=== PATIENT | female | born 1990 | race Caucasian/White ===

== ENCOUNTER 2017-09-18 11:34 | Outpatient (CLI) | payer MEDICAID ==
[~2017-09-18] VITALS: Ht 160 cm; Wt 111.4 kg
[2017-09-18] MEDS ORDERED: LACTATED RINGER'S 1,000 ML IV SCH ×2 (12:12→13:47)
[2017-09-18 12:17] VITALS: Ht 160 cm; Wt 111.4 kg
[2017-09-18] MEDS ORDERED: PREN-19 PO (12:20)
[2017-09-18] MEDS ORDERED: LIDOCAINE 1% (MPF) 30 ML INJ INJ PRN ×2 (12:30→14:00)
[2017-09-18] MEDS ORDERED: OXYTOCIN 30 UNITS/LR 500 ML IV SCH ×2 (12:30)
[2017-09-18] MEDS ORDERED: OXYTOCIN 30 UNITS/LR 500 ML IV PRN ×2 (12:30→14:00)
[2017-09-18] MEDS ORDERED: IBUPROFEN 600 MG TAB PO PRN ×2 (12:30→14:00)
[2017-09-18] MEDS ORDERED: BUTORPHANOL 2 MG INJ IV PRN (12:30)
[2017-09-18] MEDS ORDERED: MISOPROSTOL 200 MCG TAB PR PRN ×2 (12:30→14:00)
[2017-09-18] MEDS ORDERED: CARBOPROST 250 MCG INJ IM PRN ×2 (12:30→14:00)
[2017-09-18] MEDS ORDERED: METHYLERGONOVINE 0.2 MG INJ IM PRN ×2 (12:30→14:00)
[2017-09-18 12:36] LABS: BASOPHIL # 0.1 10^3/ul (0.0-0.1); BASOPHILS % 0.5 % (0.0-2.0); EOSINOPHILS # 0.1 10^3/ul (0.0-0.5); EOSINOPHILS % 0.5 % (0.0-7.0); HEMATOCRIT 33.3 % (37.0-47.0); HEMOGLOBIN 10.6 g/dl (12.0-16.0); LYMPHOCYTES # 1.5 10^3/ul (0.8-2.9); LYMPHOCYTES % 15.7 % (15.0-51.0); MEAN CORPUSCULAR HGB CONC 31.8 g/dl (32.0-37.0); MEAN CORPUSCULAR VOLUME 75.3 fl (82.0-101.0); MEAN PLATELET VOLUME 9.7 fl (7.4-10.4); MONOCYTE # 0.6 10^3/ul (0.3-0.9); MONOCYTES % 6.1 % (0.0-11.0); NEUTROPHIL # 7.3 10^3/ul (1.6-7.5); NEUTROPHILS % 76.6 % (39.0-77.0); NUCLEATED RED BLOOD CELLS% 0.3 /100WBC (0.0-0.0); PLATELET COUNT 320 10^3/UL (140-415); RED BLOOD COUNT 4.42 10^6/ul (4.20-5.40); RED CELL DISTRIBUTION WIDTH 15.4 % (11.5-14.5); WHITE BLOOD COUNT 9.5 10^3/ul (4.8-10.8)
[2017-09-18 12:55] LABS: INR 0.89; PARTIAL THROMBOPLASTIN TIME 24.9 Sec (25.0-35.0); PT RATIO 0.9
[2017-09-18 13:00] LABS: ALANINE AMINOTRANSFERASE 31 IU/L (13-69); ALBUMIN 2.9 g/dl (3.3-4.9); ALBUMIN 3.3 g/dl (3.3-4.9); ALBUMIN/GLOBULIN RATIO 0.87; ALKALINE PHOSPHATASE 157 IU/L (42-121); ANION GAP 11 (8-16); ASPARTATE AMINO TRANSFERASE 19 IU/L (15-46); BILIRUBIN,INDIRECT 0.1 mg/dl (0-1.1); BILIRUBIN,TOTAL 0.1 mg/dl (0.2-1.3); BLOOD UREA NITROGEN 15 mg/dl (7-20); CALCIUM 9.6 mg/dl (8.4-10.2); CARBON DIOXIDE 23 mmol/L (21-31); CHLORIDE 110 mmol/L (97-110); CREATININE 0.73 mg/dl (0.44-1.00); GLUCOSE 122 mg/dl (70-220); POTASSIUM 4.9 mmol/L (3.5-5.1); SODIUM 139 mmol/L (135-144); TOTAL PROTEIN 6.2 g/dl (6.1-8.1); TOTAL PROTEIN 6.5 g/dl (6.1-8.1)
[2017-09-18] MEDS ORDERED: LACTATED RINGER'S 1,000 ML IV PRN ×2 (13:00)
--- NOTE | 2017-09-18 13:04 | RADRPT ---
PROCEDURE: Obstetrical ultrasound CLINICAL INDICATION: MACROSOMIA TECHNIQUE: Multiple sonographic images of the pelvis were obtained. The images were reviewed on a PACS workstation. COMPARISON: None FINDINGS: The cervix is not well visualized. There is a single viable intrauterine gestation. Cardiac activity is present with 144 beats per minute. There is a vertex presentation. The placenta is anterior. There is no evidence for an abruption or placenta previa. There is a normal amount of amniotic fluid with an RALEIGH = 9.9 cm. Measurements were made in order to determine age. The results are as follows (cm): BPD =8.82 HC =31.45 AC =35.53 FL =6.95 Estimated gestational age by ultrasound of approximately 36 weeks, 4 days. The estimated date of delivery by ultrasound is 10/12/2017. Estimated gestational age by LMP of approximately 37 weeks, 3 days. The estimated date of delivery by LMP is 10/06/2017. EFW = 3270 grams (64th percentile) IMPRESSION: Single viable intrauterine gestation of approximately 36 weeks, 4 days . The estimated date of delivery is 10/12/2017 . Dating by ultrasound is within 6 days of dating by LMP. Cephalic presentation. Normal RALEIGH. Estimated weight is 3020 70 g which is in the 64th percentile. RPTAT: EE Physician Reagan Date Time Electronically viewed and signed by Physician Reagan on 09/18/2017 13:04 /
[2017-09-18 14:15] LABS: ADD UMIC YES; UR ASCORBIC ACID 20 mg/dL (NEGATIVE); UR BACTERIA FEW /HPF (NONE SEEN); UR BILIRUBIN (Dip) NEGATIVE (NEGATIVE); UR BLOOD (Dip) NEGATIVE (NEGATIVE); UR CLARITY CLEAR (CLEAR); UR COLOR YELLOW (YELLOW); UR GLUCOSE (Dip) NEGATIVE (NEGATIVE); UR KETONES (Dip) NEGATIVE (NEGATIVE); UR LEUKOCYTE ESTERASE (Dip) NEGATIVE Leu/ul (NEGATIVE); UR NITRITE (Dip) NEGATIVE (NEGATIVE); UR RBC 0 /HPF (0-5); UR SPECIFIC GRAVITY (Dip) 1.017 (1.003-1.030); UR SQUAMOUS EPITHELIAL CELL FEW /HPF (FEW); UR TOTAL PROTEIN (Dip) 1+ mg/dl (NEGATIVE); UR UROBILINOGEN (Dip) NEGATIVE (NEGATIVE)
== END 2017-09-18 16:45 | disposition home or self-care (01) ==
LOC: UNDOADMIN 11:34 → L-D 11:34 → OBT 11:34 → L-D 11:34 → OBT 16:45 → EDSTATUS 17:37
PROVIDERS: ATTEND Obstetrics & Gynecology
DX: O26.893 Other specified pregnancy related conditions, third trimester (principal); O36.63X0 Maternal care for excessive fetal growth, third trimester, not applicable or unspecified; Z3A.37 37 weeks gestation of pregnancy
CPT/HCPCS: 76815; 80053; 80076; 81001; 85025; 85610; 85730; 86592; 86900; 86901; 87340; J7120